=== PATIENT | male | born 1930 | race Caucasian/White ===

== ENCOUNTER → 2017-08-30 | Emergency (ER) | payer MEDICARE, OTHER ==
[2011-04-01 10:56] VITALS: BMI 26.6
== END ==
LOC: D.ER 12:44
DX: Z02.9 Encounter for administrative examinations, unspecified (principal)

== ENCOUNTER → 2018-08-17 11:30 | Outpatient (CLI) | payer MEDICARE, OTHER ==
[2011-04-01 10:56] VITALS: BMI 26.6
[~2018-08-17 11:30] MED LIST: ASPIRIN81 MG PO; CEFUROXIME500 MG PO; HYDROCHLOROTHIA25 MG PO; LISINOPRIL2.5 MG PO
== END | disposition home or self-care (01) ==
LOC: D.US 11:30
DX: N30.01 Acute cystitis with hematuria (principal); R10.30 Lower abdominal pain, unspecified

== ENCOUNTER 2018-08-23 09:51 | Emergency (ER) | payer MEDICARE, OTHER ==
[~2018-08-23] VITALS: Ht 177.8 cm; Wt 90.9 kg
[2018-08-23 09:53] VITALS: Ht 177.8 cm; Wt 90.9 kg
[2018-08-23] MEDS ORDERED: HYDROCHLOROTHIA25 MG PO (09:57)
[2018-08-23] MEDS ORDERED: LISINOPRIL2.5 MG PO (09:57)
[2018-08-23] MEDS ORDERED: ASPIRIN81 MG PO (09:58)
[2018-08-23] MEDS ORDERED: CEFUROXIME500 MG PO (09:58)
[2018-08-23 11:03] LABS: HEMATOCRIT 36.6 % (42.0-54.0); HEMOGLOBIN 12.5 g/dL (13.5-17.5); MCH 35.5 pg (26.0-34.0); MCHC 34.2 g/dL (31.0-37.0); MEAN PLATELET VOLUME 9.5 fL (7.4-10.4); RBC 3.52 10x6/uL (4.20-6.10); RDW 13.2 % (11.5-14.5); WBC 12.8 10x3/uL (4.8-10.8)
[2018-08-23 11:05] LABS: PLATELET COUNT 157 10x3/uL (130-400)
[2018-08-23 11:16] LABS: ALBUMIN 3.3 g/dL (3.4-5.0); ALKALINE PHOSPHATASE 53 U/L (46-116); ALT (SGPT) 36 U/L (10-68); BILIRUBIN - TOTAL 0.53 mg/dL (0.2-1.3); CALC OSMOLALITY 290 mosm/kg (275-300); CALCIUM 8.7 mg/dL (8.5-10.1); CARBON DIOXIDE 31.4 mmol/L (21.0-32.0); CHLORIDE - SERUM 104 mmol/L (98-107); GLUCOSE 107 mg/dL (74-106); POTASSIUM - SERUM 3.1 mmol/L (3.5-5.1); PROTEIN - SERUM 6.8 g/dL (6.4-8.2); SODIUM 145 mmol/L (136-145); UREA NITROGEN 17 mg/dL (7-18); eGFR NON AFRICAN AMERICAN 75 mL/min (90-120)
[2018-08-23 11:20] LABS: AMYLASE - SERUM 35 U/L (25-115); LIPASE 118 U/L (73-393)
[2018-08-23 11:21] LABS: IMMATURE GRANULOCYTES 0.2 % (0-5)
[2018-08-23 11:23] LABS: TROPONIN-I < 0.017 ng/mL (0.000-0.060)
[2018-08-23 11:29] LABS: APPEARANCE HAZY (CLEAR); BACTERIA FEW /hpf (NONE SEEN); BILIRUBIN NEGATIVE (NEGATIVE); COLOR YELLOW (YELLOW); EPITHELIAL CELLS 0-5 /hpf (0-5); GLUCOSE NEGATIVE (NEGATIVE); KETONE NEGATIVE (NEGATIVE); NITRITE NEGATIVE (NEGATIVE); PROTEIN NEGATIVE (NEGATIVE); RED CELLS - URINE OCC /hpf (0-5); SPECIFIC GRAVITY 1.015 (1.005-1.020); UROBILINOGEN NORMAL (NORMAL)
[2018-08-23 12:01] LABS: ANISOCYTOSIS OCC; LYMPHOCYTES 66 % (15-50); MONOCYTES 2 % (2-11); NEUTROPHILS 24 % (40-80); PLATELET ESTIMATE NORMAL; SMUDGE CELLS OCC
[2018-08-23 14:34] VITALS: BP 151/91
== END 2018-08-23 13:21 | disposition home or self-care (01) ==
LOC: D.ER 09:51
PROVIDERS: Emergency Medicine
DX: R10.31 Right lower quadrant pain (principal); Z85.528 Personal history of other malignant neoplasm of kidney; Z85.6 Personal history of leukemia; E87.6 Hypokalemia; K62.1 Rectal polyp

== ENCOUNTER → 2018-08-29 10:38 | Outpatient (CLI) | payer MEDICARE, OTHER ==
[2018-08-23 09:53] VITALS: BMI 28.7
== END | disposition home or self-care (01) ==
LOC: D.LAB 10:38
DX: Z12.5 Encounter for screening for malignant neoplasm of prostate (principal)